=== PATIENT | female | born 1950 | race Caucasian/White ===

== ENCOUNTER 2017-08-16 02:40 | Emergency (ER) | payer MEDICARE ==
[2017-08-16] MEDS ORDERED: NITROGLYCERIN 2% OINTMENT 1 GM PACKET TP ONE (02:51)
--- NOTE | 2017-08-16 02:57 | ER Document Report ---
ED General - General Chief Complaint: Chest Pain Stated Complaint: CHEST PAIN Time Seen by Provider: 08/16/17 02:43 Notes: Patient is a pleasant 67-year-old female presents with complaint of chest pressure. She says over last few days she had what she thought was indigestion. Tonight she woke up diaphoretic, vomited a few times, short of breath, sweating, and felt like a elephant was sitting on her chest. She has never had this sensation before. She says that her brother of a heart attack at the age of 66. Her father and grandfather both have history of heart attacks. Patient says that she does not like to see doctors and therefore does not see a doctor on a regular basis. She says the only history that she is aware of his of gout. She is not allergic to medications. She currently does not take any medications. She has no other complaints at this time. Patient took aspirin at home and received 324mg more in the ambulance. - Related Data Allergies/Adverse Reactions: codeine Allergy (Verified 08/16/17 03:39) Psychosis methylprednisolone [From Solu-Medrol] Allergy (Verified 08/16/17 03:39) Penicillins Allergy (Verified 08/16/17 03:39) prednisone Allergy (Verified 08/16/17 03:39) Home Medications: Current Home Medications No Home Medications 08/16/17 [History] Past Medical History - Social History Smoking Status: Unknown if Ever Smoked Frequency of alcohol use: None Drug Abuse: None Family History: Reviewed & Not Pertinent Review of Systems - Review of Systems Notes: My Normal Review Basic REVIEW OF SYSTEMS: CONSTITUTIONAL : Denies fever, chills, or sweats. Denies recent illness. EENT: Denies eye, ear, throat, or mouth pain or symptoms. Denies nasal or sinus congestion. CARDIOVASCULAR: Chest pressure. RESPIRATORY: Denies cough, cold, or chest congestion. Denies shortness of breath, difficulty breathing, or wheezing. GASTROINTESTINAL: Denies abdominal pain. Denies nausea, vomiting, or diarrhea. Denies constipation. Last BM: MUSCULOSKELETAL: Denies neck or back pain or joint pain or swelling. SKIN: Denies rash or skin lesions. NEUROLOGICAL: Denies altered mental status or loss of consciousness. Denies headache. Denies weakness or paralysis or loss of use of either side. Denies problems with gait or speech. Denies sensory or motor loss. ALL OTHER SYSTEMS REVIEWED AND NEGATIVE. Physical Exam - Vital signs Vitals: Resp Pulse Ox 18 100 08/16/17 02:52 08/16/17 02:52 - Notes Notes: General Appearance: Well nourished, alert, cooperative, no acute distress, no obvious discomfort. Well-appearing. Vitals: reviewed, See vital signs table. Head: no swelling or tenderness to the head Eyes: PERRL, EOMI, Conjuctiva clear Mouth: No decreasd moisture Neck: Supple, no neck tenderness, No thyromegaly Small: No reproducible pain palpation of chest wall. Lungs: No wheezing, No rales, No rhonci, No accessory muscle use, good air exchange bilaterally. Heart: Normal rate, Regular rythm, No murmur, no rub Abdomen: Normal BS, soft, No rigidity, No abdominal tenderness, Extremities: strength 5/5 in all extremities, good pulses in all extremities, no swelling or tenderness in the extremities, no edema. Skin: warm, dry, appropriate color, no rash Neuro: speech clear, oriented x 3, normal affect, responds appropriately to questions. Course - Re-evaluation Re-evalutation: 08/16/17 04:46 Patient says that she is feeling much improved. She says she has only a very slight "barely noticeable" twins of pressure occasionally in her chest. Her repeat EKG continues to show the [address] segment depression that is unchanged in comparison to previous. I did speak with Dr. Portillo who recommends repeating the troponin. If the troponin is increasing then the patient will have to be transferred. If it is remaining the same then will most likely we will be able to keep the patient here. 08/16/17 06:28 Patient's repeat troponin is increasing. It went 2.169. Her history is concerning. Her EKG does have the [address] segment depression. I will give her a dose of Lovenox. Her chest pain is resolved. I will call [facility] for consideration for transfer. We do not have interventional cardiology here and therefore patient will be unable to obtain a heart cath and that is why we have to transfer. 08/16/17 06:29 08/16/17 07:[address] Ro, hospitalist at [facility]. She agrees to accept the patient. Her only request is that the patient 's was having chest pain again or appears unwell to call them immediately so we can change to bed status. They are awaiting bed placement at this time. I did go reevaluate the patient she continues to be pain-free and looks well. Patient will be closely monitored. Dictation of this chart was performed using voice recognition software; therefore, there may be some unintended grammatical errors. - Vital Signs Vital signs: Temp Pulse Resp BP Pulse Ox 98.2 F 16 128/65 H 96 08/16/17 06:30 08/16/17 07:01 08/16/17 07:01 08/16/17 07:01 - Laboratory Result Diagrams: 08/16/17 02:47 08/16/17 03:40 Laboratory results interpreted by me: 08/16/17 08/16/17 02:47 03:40 WBC 18.5 H RBC 5.69 H Hgb 16.5 H Hct 49.6 H RDW 14.1 H Seg Neuts % (Manual) 32 L Band Neutrophils % 1 L Lymphocytes % (Manual) 63 H Abs Lymphs (Manual) 11.7 H BUN 23 H Creatinine 1.36 H Est GFR ( Amer) 47 L Est GFR (Non-Af Amer) 39 L Glucose 118 H Calcium 11.0 H Direct Bilirubin 0.5 H - EKG Interpretation by Me Additional EKG results interpreted by me: 08/16/17 02:56 EKG EKG is reviewed and interpreted by me. EKG shows normal sinus rhythm with rate of [address] segment elevation. Some [address] segment depression in the lateral leads. Old EKG available for comparison. Discharge - Discharge Disposition: [facility]
--- NOTE | 2017-08-16 03:24 | RADIOLOGY REPORT (SQ) ---
EXAM DESCRIPTION: CHEST SINGLE VIEW COMPLETED DATE/TIME: 08/16/2017 3:09 am REASON FOR STUDY: chest pain COMPARISON: None. EXAM PARAMETERS: NUMBER OF VIEWS: One view. TECHNIQUE: Single frontal radiographic view of the chest acquired. RADIATION DOSE: NA LIMITATIONS: None. FINDINGS: LUNGS AND PLEURA: No opacities, masses or pneumothorax. No pleural effusion. Minimal atel ectasis or scar of the left mid lung field. MEDIASTINUM AND HILAR STRUCTURES: No masses. Contour normal. HEART AND VASCULAR STRUCTURES: Heart normal in size. Normal vasculature. BONES: No acute findings. HARDWARE: None in the chest. OTHER: No other significant finding. IMPRESSION: Minimal atelectasis or scar of the left mid lung field. TECHNICAL DOCUMENTATION: JOB ID: [id number]
[2017-08-16 03:30] LABS: HEMATOCRIT 49.6 % (36.0-47.0); HEMOGLOBIN 16.5 g/dL (12.0-15.5); HGB HCT DIFFERENCE -0.1; MEAN CORPUSCULAR HGB CONC 33.2 g/dL (32.0-36.0); MEAN CORPUSCULAR VOLUME 87 fl (80-97); RED BLOOD COUNT 5.69 10^6/uL (3.72-5.28); RED CELL DISTRIBUTION WIDTH 14.1 % (11.5-14.0); WHITE BLOOD COUNT 18.5 10^3/uL (4.0-10.5)
[2017-08-16 03:43] LABS: BAND NEUTROPHILS % (MANUAL) 1 % (3-5); BASOPHILS % (MANUAL) 0 % (0-2); EOSINOPHILS % (MANUAL) 1 % (0-6); LYMPHOCYTES % (MANUAL) 63 % (13-45); TOTAL CELLS COUNTED 100
[2017-08-16 03:45] LABS: ANISOCYTOSIS SLIGHT; TOXIC GRANULATION SLIGHT; TOXIC VACUOLATION PRESENT
[2017-08-16 04:11] LABS: ALANINE AMINOTRANSFERASE 33 U/L (9-52); ALBUMIN 3.9 g/dL (3.5-5.0); ALKALINE PHOSPHATASE 90 U/L (38-126); ANION GAP 13 (5-19); ASPARTATE AMINO TRANSFERASE 25 U/L (14-36); BILIRUBIN,DIRECT 0.5 mg/dL (0.0-0.4); BILIRUBIN,TOTAL 0.5 mg/dL (0.2-1.3); BLOOD UREA NITROGEN 23 mg/dL (7-20); CARBON DIOXIDE 24 mmol/L (22-30); CHLORIDE 107 mmol/L (98-107); CREATINE KINASE 32 U/L (30-135); CREATININE RESULT 1.36 mg/dL (0.52-1.25); GLUCOSE 118 mg/dL (75-110); POTASSIUM 4.5 mmol/L (3.6-5.0); SODIUM 143.9 mmol/L (137-145); TOTAL PROTEIN 6.6 g/dL (6.3-8.2)
[2017-08-16 04:22] LABS: CREATINE KINASE MB 0.81 ng/mL (<4.55)
[2017-08-16 04:26] LABS: TROPONIN I 0.083 ng/mL
[2017-08-16] MEDS ORDERED: ENOXAPARIN SODIUM INJ 100 MG/1 ML DISP.SYRIN SUBCUT SCH ×2 (06:30→18:00)
[2017-08-16] MEDS ORDERED: ENOXAPARIN SODIUM INJ 100 MG/1 ML DISP.SYRIN SUBCUT ONE (06:45)
[2017-08-16] MEDS: NORMAL SALINE 1000 ML 1,000 ML IV PRN ×2 (07:45→12:20)
--- NOTE | 2017-08-16 08:02 | EKG REPORT ---
SEVERITY:- NORMAL ECG - SINUS RHYTHM NONSPECIFIC ST-T CHANGES : Confirmed by: Rosemary Amin 16-Aug-2017 08:01:58
--- NOTE | 2017-08-16 08:03 | EKG REPORT ---
SEVERITY:- BORDERLINE ECG - SINUS RHYTHM BORDERLINE R WAVE PROGRESSION, ANTERIOR LEADS NONSPECIFIC ST-T CHANGES : Confirmed by: Rosemary Amin 16-Aug-2017 08:02:25
--- NOTE | 2017-08-16 10:35 | ER Document Report ---
Doctor's Note Notes: 08/16/17 10:34 Patient was signed out to me at change of shift that she was awaiting transfer to [facility] for cardiac cath due to chest pain. At the present time, there are no beds available at [facility]. Patient's troponin has been cycled 3 with slight increase. I have discussed this with the scrap preparer at [facility] who states that sometime today if a bed does not become available he might consider transferring her directly to the Program Director/Traffic Director. This is also been discussed with the patient.
[2017-08-16 13:43] VITALS: BP 118/52
== END 2017-08-16 14:05 | disposition short-term general hospital (02) ==
LOC: ER 02:40
DX: I21.4 Non-ST elevation (NSTEMI) myocardial infarction (principal); R07.9 Chest pain, unspecified
CPT/HCPCS: 93005 ×2; 99285; 96372; 96360; 96361; 36415; 82553; 82550; 85025; 80053; 84484; 71010; 93010; A9270; J7030; J1650